=== PATIENT | female | born 1970 | race American Indian/Alaskan Native ===

== ENCOUNTER 2019-03-14 06:05 | Day surgery (SDC) | payer BC, OTHER ==
[~2019-03-14 06:05] MED LIST: ARMOUR THYROID90 MG PO; AROMASIN25 MG PO; BIOTIN5000 MCG PO; BUPROPION XL150 MG PO; BUPROPION XL300 MG PO; CLOBETASOL EMOL15 GM TOP; DAILY VITAMIN1 EAC2 PO; FEMARA2.5 MG NG; FISH OIL300 MG PO; FOLIC ACID1 MG PO; GLIPIZIDE5 MG PO; IBRANCE125 MG PO; IBUPROFEN600 MG PO; LANTUS100 UNITS/ SUB-Q; LEVOTHYROXINE100 MCG PO; LISINOPRIL40 MG PO; METFORMIN HCL500 MG PO; PERCOCET 5-3251 EACH PO; PROGESTERONE100 MG; TRIAMTERENE-HC1 EAC3 PO; TRULICITY0.75 MG/0.; ULTRAM50 MG PO; ZOLADEX3.6 MG SUB-Q
--- NOTE | 2019-03-14 07:23 | NUR ---
0710-GLUCOSE CHECKED 82.PATIENT ASYMPTOMATIC DISCUSSED WITH DR. SAVAGE NEW ORDER FOR D5LR FLUIDS.
--- NOTE | 2019-03-14 08:04 | NUR ---
03/14/19 0804 Jordyn Issa 3619-PATIENT ARRIVED TO PACU ON 3L NC PLACED ON 2L NC RR EVEN. PATIENT AWAKE DROWSY DENIES PAIN OR NAUSEA. LAYING LEFT LATERAL. ABDOMEN SOFT. GLUCOSE CHECKED 190 DR. SAVAGE AWARE. PATIENT DOZES BACK TO SLEEP.
--- NOTE | 2019-03-14 08:30 | OR ---
[facility] [address], [place] [address] Signed DATE OF OPERATION: 03/14/2019 SURGEON: Palomo Savage MD PREOPERATIVE DIAGNOSIS: Screening. POSTOPERATIVE DIAGNOSIS: Unremarkable colonoscopy. PROCEDURE: Colonoscopy without biopsy. ESTIMATED BLOOD LOSS: None. INDICATIONS: Vee is a 48-year-old female who was asked to see me for her initial screening colonoscopy. She has no lower GI complaints. There is no family history of colon cancer or polyps. I gave Vee a pamphlet on colonoscopy in the office. She understands the nature of the test along with the risks including, but not limited to gas bloating, crampy abdominal pain, bleeding, perforation requiring surgery, and missed diagnosis. She also understands the need for IV conscious sedation. She expressed her understanding and wished to proceed. DESCRIPTION OF PROCEDURE: Vee was taken into our endoscopy suite and placed in the left lateral decubitus position. She was given 7 mg of Versed and 150 mcg of fentanyl to cover the case. A digital rectal exam was performed and this was unremarkable. The adult colonoscope was introduced and advanced under direct visualization of camera into the cecum itself. It took a little extra sedation and some abdominal compression to get into the cecum. She has a somewhat long colon. Her prep was quite excellent. We could easily see the appendiceal orifice and the ileocecal valve. Pictures were taken for photodocumentation. The scope was slowly withdrawn. We saw no pathology throughout the entire colon or rectum. Upon retroflexion of the scope, there was no additional pathology noted above the anal canal. After this, the gas was suctioned out and colonoscope removed. Vee tolerated the procedure quite well. RECOMMENDATIONS: Vee can follow up in 10 years for a repeat colonoscopy. Electronically Signed By: PALOMO SAVAGE MD 03/14/19 0830 PATIENT NAME: VEE CASTRO OPERATIVE REPORT DATE OF : 66 REPORT #: [id number] PHYSICIAN: PALOMO SAVAGE MD PCP: ALIN SAWANT REPORT IS CONFIDENTIAL AND NOT TO BE RELEASED WITHOUT AUTHORIZATION [address] [address] Signed MD KELLY Triana/ANN MARIE /[id number] cc: [facility] MD Palomo Martínez MD Lohith Veerappa Reddy, MD Copies: [facility] MD, ANDREW L MD REDDY, LOHITH VEERAPPA MD ~ Electronically Signed By: PALOMO SAVAGE MD 03/14/19 0830 PATIENT NAME: VEE CASTRO OPERATIVE REPORT DATE OF : 66 REPORT #: [id number] PHYSICIAN: PALOMO SAVAGE MD PCP: ALIN SAWANT REPORT IS CONFIDENTIAL AND NOT TO BE RELEASED WITHOUT AUTHORIZATION
--- NOTE | 2019-03-14 14:36 | NUR ---
PT MENTIONED THIS IS HER FIRST SCOPE-REACH 48 AND SHE SAID YOU HAVE TO DO THESE KINDS OF THINGS. 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 PT PLEASANT, SAID HER DAUGHTER WILL BE HERE TO TAKE HER HOME. PT REQUESTED PRAYER, WILL FOLLOW NEEDED
== END 2019-03-14 08:42 | disposition home or self-care (01) ==
LOC: OPS 06:05 → DS 06:05 → OPS 06:45
PROVIDERS: Colon & Rectal Surgery
PROC: 0DJD8ZZ Inspection of Lower Intestinal Tract, Via Natural or Artificial Opening Endoscopic (ICD-10-PCS; principal; 2019-03-14 06:45)
DX: Z12.11 Encounter for screening for malignant neoplasm of colon (principal); I10 Essential (primary) hypertension; E78.5 Hyperlipidemia, unspecified; E03.9 Hypothyroidism, unspecified; E11.9 Type 2 diabetes mellitus without complications; G47.33 Obstructive sleep apnea (adult) (pediatric); Z79.899 Other long term (current) drug therapy; Z79.4 Long term (current) use of insulin
CPT/HCPCS: 99153; G0500; J2250; J3010; J7120

== ENCOUNTER 2020-06-30 09:19 | Emergency (ER) | payer OTHER, BC ==
[~2020-06-30] VITALS: Ht 167.6 cm; Wt 80.3 kg
[~2020-06-30 09:19] MED LIST changes: +POTASSIUM CHLO10 MEQ PO; -TRULICITY0.75 MG/0.; +TRULICITY1.5 MG/0.5 SUB-Q; +ZOLPIDEM TARTRAT5 MG PO
--- OUTSIDE RECORDS SUMMARY | 2020-06-30 09:22 | XMS ---
PreManage Notification: LES CASTRO [employer] Events No recent Security Events currently on file CRITERIA MET - FATEMEHP CARE PROVIDERS [facility] Internal Medicine Current PHONE: [phone] Chelly has no Care Guidelines for this patient. EAdeola VISIT COUNT (12 MO.) 1 KIMBERLI Roblero TOTAL 1 NOTE: Visits indicate total known visits. ED/UCC VISIT TRACKING (12 MO.) 06/30/2020 09:20 KIMBERLI [facility]keon OR TYPE: Emergency COMPLAINT: - LT KNEE INJURY INPATIENT VISIT TRACKING (12 MO.) No inpatient visits to display in this time frame [id number]
[2020-06-30] MEDS ORDERED: NORCO 5-325 TA1 EACH PO (11:30)
== END 2020-06-30 12:10 | disposition home or self-care (01) ==
LOC: ED 09:19
DX: S82.145A Nondisplaced bicondylar fracture of left tibia, initial encounter for closed fracture (principal); X50.9XXA Other and unspecified overexertion or strenuous movements or postures, initial encounter; Z79.899 Other long term (current) drug therapy; Z79.4 Long term (current) use of insulin
CPT/HCPCS: 73560; 73700; 99284-25

== ENCOUNTER 2020-09-28 13:11 | Emergency (ER) | payer BC, OTHER ==
[~2020-09-28] VITALS: Ht 167.6 cm; Wt 80.3 kg
[~2020-09-28 13:11] MED LIST changes: +NORCO 5-325 TA1 EACH PO
[2020-09-28] MEDS ORDERED: MOXIFLOXACIN3 M1 OP (14:01)
== END 2020-09-28 14:22 | disposition home or self-care (01) ==
LOC: ED 13:11
DX: S05.02XA Injury of conjunctiva and corneal abrasion without foreign body, left eye, initial encounter (principal); Z85.3 Personal history of malignant neoplasm of breast; E10.9 Type 1 diabetes mellitus without complications; W22.8XXA Striking against or struck by other objects, initial encounter; Z79.899 Other long term (current) drug therapy; Z79.4 Long term (current) use of insulin
CPT/HCPCS: 99283